=== PATIENT | male | born 1990 | race African-American/Black ===

== ENCOUNTER 2025-07-06 12:52 | Emergency (ER) | payer MEDICAID, OTHER ==
[~2025-07-06] VITALS: Ht 188 cm; Wt 102.9 kg
--- NOTE | 2025-07-06 13:21 | ECG ---
[facility] Test Date: 2025-07-06 Test Time: 13:02:09 Pat Name: AMY AN Department: ED Room: Gender: M In [employer] Associate: CHEN : 1990 Requested By: ALEX CAVAZOS Order Number: [id number] Reading MD: Maciej Amato Measurements Intervals [place] Rate: 82 P: 55 SC: 157 QRS: 62 QRSD: 98 T: 38 QT: 345 QTc: 403 Interpretive Statements Sinus rhythm Probable left atrial enlargement Electronically Signed On 07-08-2025 18:41:45 PDT by Maciej Amato Please click the below link to view image of tracing.
--- NOTE | 2025-07-06 13:32 | ED.PDOC ---
GI ASSESSMENT HPI Comments 34y M who presents to the ED for chief complaint of abdominal pain. Pt states he has been having this abdominal pain for many years and was referred to GI specialist for EGD but states he did not to go appt. Pt states he has been having epigastric burning abdominal pain radiating to the upper chest for the few days and states it has become more exacerbated today and pt came to the ED for further evaluation. Pt denies any associated symptoms but states he has been having increase intake of fast food recently and this makes it worse. Pt otherwise states otherwise has PCP appt upcoming Jul 2025. Pt denies any other symptoms. Chief Complaint: Abdominal Pain Time Seen by MD: 13:30 Reviewed Notes: Medications, Allergies Allergies: Coded Allergies: NO KNOWN ALLERGIES (Unverified , 07/06/25) Information Source: Patient Mode of Arrival: Ambulatory Past Medical History PAST MEDICAL HISTORY: Denies Surgical History: Denies all surgeries Family History Family History: Reviewed,noncontributory to illness Social History Smoker: Non-Smoker Alcohol: Denies ETOH Use Drugs: Denies Drug Use Lives In: Home Constitutional: denies: chills, diaphoresis, fatigue, fever, malaise, sweats, weakness, others EENTM: denies: blurred vision, double vision, ear bleeding, ear discharge, ear drainage, ear pain, ear ringing, eye pain, eye redness, hearing loss, mouth pain, mouth swelling, nasal discharge, nose bleeding, nose congestion, nose pain, photophobia, tearing, throat pain, throat swelling, voice changes, others Respiratory: denies: cough, hemoptysis, orthopnea, SOB at rest, shortness of b reath, SOB with excertion, stridor, wheezing, others Cardiovascular: denies: chest pain, dizzy spells, diaphoresis, Dyspnea on exertion, edema, irregular heart beat, left arm pain, lightheadedness, palpitations, PND, syncope, others Gastrointestinal: reports: abdominal pain; denies: abdomen distended, blood streaked bowels, constipated, diarrhea, dysphagia, difficulty swallowing, hematemesis, melena, nausea, poor appetite, poor fluid intake, rectal bleeding, rectal pain, vomiting, others Genitourinary: denies: burning, dysuria, flank pain, frequency, hematuria, incontinence, penile discharge, penile sore, pain, testicle pain, testicle swelling, urgency, others Neurological: denies: dizziness, fainting, headache, left sided numbness, left sided weakness, numbness, paresthesia, pre-existing deficit, right sided numbness, right sided weakness, seizure, speech problems, tingling, tremors, weakness, others Musculoskeletal: denies: back pain, gout, joint pain, joint swelling, muscle pain, muscle stiffness, neck pain, others Integumetry: denies: bruises, change in color, change in hair/nails, dryness, laceration, lesions, lumps, rash, wounds, others Allergic/Immunocompromised: denies: Difficulty Healing, Frequent Infections, Hives, Itching, others Hematologic/Lymphatic: denies: anemia, blood clots, easy bleeding, easy bruisi ng, swollen glands, others Endocrine: denies: excessive hunger, excessive sweating, excessive thirst, exce ssive urination, flushing, intolerance to cold, intolerance to heat, unexplained weight gain, unexplained weight loss, others Psychiatric: denies: anxiety, bipolar disorder, depression, hopeless, panic disorder, schizophrenia, sleepless, suicidal, others All Other Systems: Reviewed and Negative Physical Exam General Appearance: No Apparent Distress, Normal HEENT: Normal ENT Inspection, Pharynx Normal, TMs Normal Neck: Full Range of Motion, Non-Tender, Normal, Normal Inspection Respiratory: Chest Non-Tender, Lungs Clear, No Accessory Muscle Use, No Respiratory Distress, Normal Breath Sounds Cardiovascular: No Edema, No JVD, No Murmur, No Gallop, Normal Peripheral Pulses, Regular Rate/Rhythm Breast Exam: Deferred Gastrointestinal: No Organomegaly, Non Tender, No Pulsatile Mass, Normal Bowel Sounds, Soft Genitalia: Deferred Pelvic: Deferred Rectal: Deferred Extremities: No calf tenderness, Normal capillary refill, Normal inspection, Normal range of motion, Non-tender, No pedal edema Musculoskeletal : Apperance: Normal Neurologic: Alert, 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 Was a procedure done?: No GI differential Dx Differential Diagnosis: Esophagitis, Gastritis/PUD, Gastroenteritis, Hernia, Pancreatitis, Dehydration, Electrolyte Imbalance X-Ray, Labs, Meds, VS Vital Signs Date Time Temp Pulse Resp B/P (MAP) Pulse Ox O2 Delivery O2 Flow Rate FiO2 07/06/25 14:28 98.7 80 16 121/72 (88) 96 98.7 07/06/25 14:28 80 17 96 Room Air 07/06/25 13:02 82 07/06/25 12:54 97.9 91 18 144/87 99 97.9 Lab Test 07/06/25 13:54 Range/Units White Blood Count 7.9 4.4-10.8 10^3/uL Red Blood Count 5.52 4.5-5.90 10^6/uL Hemoglobin 15.0 13.5-17.5 g/dL Hematocrit 45.3 41.0-53.0 % Mean Corpuscular Volume 82.1 80.0-100.0 fL Mean Corpuscular Hemoglobin 27.2 L 28.0-32.0 pg Mean Corpuscular Hemoglobin Concent 33.2 32.0-36.0 g/dL Red Cell Distribution Width 14.3 11.8-14.3 % Platelet Count 336 140-450 10^3/uL Mean Platelet Volume 7.6 6.9-10.8 fL Neutrophils (%) (Auto) 55.8 37.0-80.0 % Lymphocytes (%) (Auto) 30.6 10.0-50.0 % Monocytes (%) (Auto) 8.6 0.0-12.0 % Eosinophils (%) (Auto) 4.0 0.0-7.0 % Basophils (%) (Auto) 1.0 0.0-2.0 % Neutrophils # (Auto) 4.4 1.6-8.6 10 ^3/uL Lymphocytes # (Auto) 2.4 0.4-5.4 10 ^3/uL Monocytes # (Auto) 0.7 0-1.3 10 ^3/uL Eosinophils # (Auto) 0.3 0-0.8 10 ^3/uL Basophils # (Auto) 0.1 0-0.2 10 ^3/uL Nucleated Red Blood Cells 0.0 % Sodium Level 140 136-145 mmol/L Potassium Level 4.3 3.5-5.1 mmol/L Chloride Level 106 98-107 mmol/L Carbon Dioxide Level 27 20-31 mmol/L Anion Gap 7 5-15 Blood Urea Nitrogen 14 9-23 mg/dL Creatinine 1.03 0.700-1.30 mg/dL Glomerular Filtration Rate Calc 97 >90 mL/min BUN/Creatinine Ratio 13.6 10.0-20.0 Serum Glucose 95 74-106 mg/dL Calcium Level 9.6 8.7-10.4 mg/dL Lipase 39 12-53 U/L Current Medications Medications (Trade) Dose Ordered Sig/Philip Route Start Time Stop Time Status Last Admin Al Hydrox/Mg Hydrox/Simethicone (Maalox Plus) 30 ml ONCE ONCE PO 07/06/25 13:45 07/06/25 13:46 DC 07/06/25 14:27 Famotidine (Pepcid Tablet) 20 mg ONCE ONCE PO 07/06/25 13:45 07/06/25 13:46 DC 07/06/25 14:27 X-Ray, Labs, Meds, VS Comment Patient presents with epigastric pain with etiology most likely secondary to gastritis/GERD or other benign etiology. Discussed management as outpatient with H2 Clint (for which prescription was sent to the pharmacy) and risk reduction with lifestyle changes such as sleeping at an angle, reduction in trigger (acidic/caffeinated/spicy/alcohol) foods, spreading out meals to 5-6 small meals per day, and minimizing PO intake 2 hours prior to sleep. Reviewed return precautions with patient including worsening pain, PO intolerance, fever > 100.4. Reviewed return precautions including, but not limited to fever > 100.4, worsening of symptoms, and PO intolerance. Patient is in agreement with the plan and all questions answered. Considered acute biliary process (choledocholithiasis, cholecystitis, cholangitis), pancreatitis, UGIB, PUD, gastric perforation, lower lobe pneumonia, atypical ACS/RI, or vascular catastrophe, but based on above history/physical/evaluation as above consider these to be less likely. Time of 1ST Reevaluation: 14:15 Reevaluation 1ST: Improved Time of 2ND Reevaluation: 15:27 Reevaluation 2ND: Improved Patient Education/Counseling: Diagnosis, Treatment Family Education/Counseling: No Family Present SEPSIS Sepsis Screen Date sepsis recognized/suspect: Jul 06, 2025 Time Sepsis recognized/suspect: 1254 Recent Procedure: No On Antibiotic Therapy: No Respiratory Rate >20: No Heart Rate >90: No Temp<36 C (96.8 F) or >38.3 C: No SBP <90 or MAP <65 mmHG: No New Acute Mental Status Change: No Is the patient on CPAP, BIPAP,: No Vital Signs Date Time Temp Pulse Resp B/P (MAP) Pulse Ox O2 Delivery O2 Flow Rate FiO2 07/06/25 14:28 98.7 80 16 121/72 (88) 96 98.7 07/06/25 14:28 80 17 96 Room Air 07/06/25 13:02 82 07/06/25 12:54 97.9 91 18 144/87 99 97.9 Laboratory Tests Test 07/06/25 13:54 White Blood Count 7.9 10^3/uL (4.4-10.8) Medications Medications Dose Ordered Sig/Philip Route Start Time Stop Time Status Last Admin Dose Admin Al Hydrox/Mg Hydrox/Simethicone 30 ml ONCE ONCE PO 07/06/25 13:45 07/06/25 13:46 DC 07/06/25 14:27 Famotidine 20 mg ONCE ONCE PO 07/06/25 13:45 07/06/25 13:46 DC 07/06/25 14:27 Departure 1 Departure Time of Disposition: 15:28 Impression: Primary Impression: GERD (gastroesophageal reflux disease) Disposition: 01 HOME / SELF CARE / HOMELESS Condition: Stable e-Prescriptions Famotidine (PEPCID TABLET) 20 Mg Tb 1 TAB PO BID for 14 Days, #28 TAB Prov: ALEX CAVAZOS MD 07/06/25 Discharged With: Self Critical Care Note Critical Care Time?: No Stability Stability form required: No Heart Score Heart Score: Heart Score Response (Comments) Value History N/A 0 EKG N/A 0 Age N/A 0 Risk Factors N/A 0 Troponin N/A 0 Total 0 I personally scribed for ALEX CAVAZOS MD ([email or web address]) on 07/06/25 at 13:32. Electronically submitted by aMry RAY). ALEX CAVAZOS MD Jul 06, 2025 13:32
[2025-07-06 14:23] LABS: Hematocrit 45.3 % (41.0-53.0); Hemoglobin 15.0 g/dL (13.5-17.5); Mean Corpuscular Hemoglobin 27.2 pg (28.0-32.0); Mean Corpuscular Volume 82.1 fL (80.0-100.0); Nucleated Red Blood Cells % 0.0 %
[2025-07-06 14:27] LABS: Chloride 106 mmol/L (98-107); Potassium 4.3 mmol/L (3.5-5.1); Sodium 140 mmol/L (136-145)
[2025-07-06] MEDS: FAMOTIDINE 20 MG TAB PO ONE (14:27)
[2025-07-06] MEDS: MAALOX PLUS or MAALOX 30 ML PO ONE (14:27)
[2025-07-06 14:28] LABS: Anion Gap 7 (5-15); Calcium 9.6 mg/dL (8.7-10.4); Carbon Dioxide 27 mmol/L (20-31)
[2025-07-06 14:33] LABS: BUN/Creatinine Ratio 13.6 (10.0-20.0); Blood Urea Nitrogen 14 mg/dL (9-23); Glucose 95 mg/dL (74-106)
[2025-07-06] MEDS ORDERED: FAMO20TA10 PO (15:29)
[2025-07-06 15:43] VITALS: BP 124/68; PULSE 77; RESP 17; TEMP 98.7; O2SAT 97
== END 2025-07-06 15:44 | disposition home or self-care (01) ==
LOC: ER 12:52
DX: K21.9 Gastro-esophageal reflux disease without esophagitis (principal)
CPT/HCPCS: 36415; 80048; 83690; 85025; 93005

== ENCOUNTER 2025-07-12 23:07 | Emergency (ER) | payer MEDICAID ==
[~2025-07-12] VITALS: Ht 188 cm; Wt 103.3 kg
[~2025-07-12 23:07] MED LIST: FAMO20TA10 PO
--- NOTE | 2025-07-12 23:34 | ED.PDOC ---
History of Present Illness HPI Comments 34 y/o M presents with epigastric abdominal pain. Patient endorses on returning pain sensation in his abdomen, which radiates to his sternum, this evening. He comments on being seen at ED for similar symptoms and diagnosed with GERD on 07/06/25 in addition to being prescribed Pepcid. Patient states on taking Pepcid and having no relief or improvement for pain. Additional pertinent history of concurrent umbilical hernia. Denial of any nausea, vomiting, fever, chills, shortness of breath, or further associated symptoms. Chief Complaint: Abdominal Pain Time Seen by MD: 23:15 Reviewed Notes: Nurses Notes, Medications, Allergies Allergies: Coded Allergies: NO KNOWN ALLERGIES (Unverified , 07/06/25) Home Meds Active Scripts Sucralfate (CARAFATE SUSP) 1 Gm/10 Ml Ss, 10 ML PO QID PRN, #1200 ML 3 Refills Prov:JOEL WOOD MD 07/13/25 Ken Carb & Mag Hydrox-Simeth (Mylanta Coat & Cool 1200-270-80 mg/10Ml) 1 Fernanda Fernanda, 1 FERNANDA PO Q6HP PRN, #120 ML 5 Refills Prov:JOEL WOOD MD 07/13/25 Pantoprazole Sodium Sesquihydr (Protonix) 40 Mg Tab, 40 MG PO DAILY for 90 Days, #90 TAB 3 Refills Prov:JOEL WOOD MD 07/13/25 Famotidine (PEPCID TABLET) 20 Mg Tb, 1 TAB PO BID for 14 Days, #28 TAB Prov:ALEX CAVAZOS MD 07/06/25 Information Source: Patient Mode of Arrival: Ambulatory Past Medical History PAST MEDICAL HISTORY: GERD Past Medical History (Other): umbilical hernia Surgical History: Denies all surgeries Family History Family History: Reviewed,noncontributory to illness Social History Smoker: Non-Smoker Alcohol: Denies ETOH Use Drugs: Denies Drug Use Lives In: Home All Other Systems: Reviewed and Negative (Comprehensive systems review obtained and negative except for what is stated in the HPI.) Physical Exam General Appearance: Mild Distress, Normal HEENT: Normal ENT Inspection, Pharynx Normal, TMs Normal Neck: Full Range of Motion, Non-Tender, Normal, Normal Inspection Respiratory: Chest Non-Tender, Lungs Clear, No Accessory Muscle Use, No Respiratory Distress, Normal Breath Sounds Cardiovascular: No Edema, No JVD, No Murmur, No Gallop, Normal Peripheral Pulses, Regular Rate/Rhythm Breast Exam: Deferred Gastrointestinal: No Organomegaly, Non Tender, No Pulsatile Mass, Normal Bowel Sounds, Soft Genitalia: Deferred Pelvic: Deferred Rectal: Deferred Extremities: No calf tenderness, Normal capillary refill, Normal inspection, Normal range of motion, Non-tender, No pedal edema Musculoskeletal : Apperance: Normal Neurologic: Alert, 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 Was a procedure done?: No EKG EKG : Pulse Rate (adult): 76 [place]: Normal Cardiac Rhythm: NSR Block: None Hypertrophy: None ST: Normal Differential Dx Considerations may include: GERD, gastritis, PUD, viral syndrome, spoiled food, among others X-Ray, Labs, Meds, VS Vital Signs Date Time Temp Pulse Resp B/P (MAP) Pulse Ox O2 Delivery O2 Flow Rate FiO2 07/13/25 01:30 96 Room Air* 0 21 07/13/25 01:25 97.6 70 20 114/81 (92) 98 97.6 07/12/25 23:34 76 07/12/25 23:19 76 07/12/25 23:08 98.0 73 18 141/88 99 98.0 Lab Test 07/12/25 23:24 Range/Units White Blood Count 8.3 4.4-10.8 10^3/uL Red Blood Count 5.43 4.5-5.90 10^6/uL Hemoglobin 14.8 13.5-17.5 g/dL Hematocrit 44.2 41.0-53.0 % Mean Corpuscular Volume 81.5 80.0-100.0 fL Mean Corpuscular Hemoglobin 27.2 L 28.0-32.0 pg Mean Corpuscular Hemoglobin Concent 33.4 32.0-36.0 g/dL Red Cell Distribution Width 14.2 11.8-14.3 % Platelet Count 300 140-450 10^3/uL Mean Platelet Volume 7.3 6.9-10.8 fL Neutrophils (%) (Auto) 46.0 37.0-80.0 % Lymphocytes (%) (Auto) 38.1 10.0-50.0 % Monocytes (%) (Auto) 10.5 0.0-12.0 % Eosinophils (%) (Auto) 4.3 0.0-7.0 % Basophils (%) (Auto) 1.1 0.0-2.0 % Neutrophils # (Auto) 3.8 1.6-8.6 10 ^3/uL Lymphocytes # (Auto) 3.2 0.4-5.4 10 ^3/uL Monocytes # (Auto) 0.9 0-1.3 10 ^3/uL Eosinophils # (Auto) 0.4 0-0.8 10 ^3/uL Basophils # (Auto) 0.1 0-0.2 10 ^3/uL Nucleated Red Blood Cells 0.1 % Sodium Level 138 136-145 mmol/L Potassium Level 3.7 3.5-5.1 mmol/L Chloride Level 105 98-107 mmol/L Carbon Dioxide Level 24 20-31 mmol/L Anion Gap 9 5-15 Blood Urea Nitrogen 18 9-23 mg/dL Creatinine 1.21 0.700-1.30 mg/dL Glomerular Filtration Rate Calc 80 >90 mL/min BUN/Creatinine Ratio 14.9 10.0-20.0 Serum Glucose 96 74-106 mg/dL Calcium Level 8.9 8.7-10.4 mg/dL Total Bilirubin 0.8 0.2-1.0 mg/dL Aspartate Amino Transferase (AST) 13 13-40 U/L Alanine Aminotransferase (ALT) 16 7-40 U/L Alkaline Phosphatase 50 46-116 U/L Troponin I High Sensitivity < 3 L </=54 ng/L Total Protein 7.0 5.7-8.2 g/dL Albumin 4.3 3.2-4.8 g/dL Lipase 42 12-53 U/L Current Medications Medications (Trade) Dose Ordered Sig/Philip Route Start Time Stop Time Status Last Admin Ondansetron HCl (Zofran Po) 4 mg ONCE ONCE PO 07/12/25 23:30 07/12/25 23:32 DC 07/13/25 00:28 Al Hydrox/Mg Hydrox/Simethicone (Maalox Plus) 30 ml ONCE ONCE PO 07/12/25 23:30 07/12/25 23:32 DC 07/13/25 00:27 Belladonna Alkaloids/ Phenobarbital ( Elixir) 5 ml ONCE ONCE PO 07/12/25 23:30 07/12/25 23:32 DC 07/13/25 00:27 Lidocaine HCl (Xylocaine 2% Viscous) 15 ml ONCE ONCE PO 07/12/25 23:30 07/12/25 23:32 DC 07/13/25 00:28 Time of 1ST Reevaluation: 23:45 Reevaluation 1ST: Unchanged Patient Education/Counseling: Diagnosis, Treatment Family Education/Counseling: No Family Present SEPSIS Sepsis Screen Date sepsis recognized/suspect: Jul 12, 2025 Time Sepsis recognized/suspect: 2314 Recent Procedure: No On Antibiotic Therapy: No Respiratory Rate >20: No Heart Rate >90: No Temp<36 C (96.8 F) or >38.3 C: No SBP <90 or MAP <65 mmHG: No New Acute Mental Status Change: No Is the patient on CPAP, BIPAP,: No Physician Orders Electrocardigram (07/12/25 23:09) Vital Signs Date Time Temp Pulse Resp B/P (MAP) Pulse Ox O2 Delivery O2 Flow Rate FiO2 07/13/25 01:30 96 Room Air* 0 21 07/13/25 01:25 97.6 70 20 114/81 (92) 98 97.6 07/12/25 23:34 76 07/12/25 23:19 76 07/12/25 23:08 98.0 73 18 141/88 99 98.0 Laboratory Tests Test 07/12/25 23:24 White Blood Count 8.3 10^3/uL (4.4-10.8) Medications Medications Dose Ordered Sig/Philip Route Start Time Stop Time Status Last Admin Dose Admin Al Hydrox/Mg Hydrox/Simethicone 30 ml ONCE ONCE PO 07/12/25 23:30 07/12/25 23:32 DC 07/13/25 00:27 Belladonna Alkaloids/ Phenobarbital 5 ml ONCE ONCE PO 07/12/25 23:30 07/12/25 23:32 DC 07/13/25 00:27 Lidocaine HCl 15 ml ONCE ONCE PO 07/12/25 23:30 07/12/25 23:32 DC 07/13/25 00:28 Ondansetron HCl 4 mg ONCE ONCE PO 07/12/25 23:30 07/12/25 23:32 DC 07/13/25 00:28 Departure 1 Departure Time of Disposition: 02:00 Impression: Primary Impression: Epigastric abdominal pain Disposition: HOME / SELF CARE / HOMELESS Condition: Stable e-Prescriptions Sucralfate (CARAFATE SUSP) 1 Gm/10 Ml Ss 10 ML PO QID PRN, #1200 ML 3 Refills Prov: JOEL WOOD MD 07/13/25 Ken Carb & Mag Hydrox-Simeth (Mylanta Coat & Cool 1200-270-80 mg/10Ml) 1 Fernanda Fernanda 1 FERNANDA PO Q6HP PRN, #120 ML 5 Refills Prov: JOEL WOOD MD 07/13/25 Pantoprazole Sodium Sesquihydr (Protonix) 40 Mg Tab 40 MG PO DAILY for 90 Days, #90 TAB 3 Refills Prov: JOEL WOOD MD 07/13/25 Discharged With: Self Critical Care Note Critical Care Time?: No Stability Stability form required: No Heart Score Heart Score: Heart Score Response (Comments) Value History N/A 0 EKG N/A 0 Age N/A 0 Risk Factors N/A 0 Troponin N/A 0 Total 0 I personally scribed for JOEL WOOD MD ([email or web address]) on 07/12/25 at 23:34. Electronically submitted by Rivas Swanson ([email or web address]). JOEL WOOD MD Jul 12, 2025 23:34
[2025-07-12 23:36] LABS: Nucleated Red Blood Cells % 0.1 %
[2025-07-12 23:38] LABS: Hematocrit 44.2 % (41.0-53.0); Hemoglobin 14.8 g/dL (13.5-17.5); Mean Corpuscular Hemoglobin 27.2 pg (28.0-32.0); Mean Corpuscular Volume 81.5 fL (80.0-100.0)
[2025-07-12 23:51] LABS: Alanine Aminotransferase 16 U/L (7-40); Albumin 4.3 g/dL (3.2-4.8); Alkaline Phosphatase 50 U/L (46-116); Anion Gap 9 (5-15); BUN/Creatinine Ratio 14.9 (10.0-20.0); Bilirubin, Total 0.8 mg/dL (0.2-1.0); Blood Urea Nitrogen 18 mg/dL (9-23); Calcium 8.9 mg/dL (8.7-10.4); Carbon Dioxide 24 mmol/L (20-31); Chloride 105 mmol/L (98-107); Glucose 96 mg/dL (74-106); Lipase 42 U/L (12-53); Potassium 3.7 mmol/L (3.5-5.1); Sodium 138 mmol/L (136-145); Total Protein 7.0 g/dL (5.7-8.2)
[2025-07-13] MEDS: MAALOX PLUS or MAALOX 30 ML PO ONE (00:27)
[2025-07-13] MEDS: DONNATAL 5ml ORAL Elix (BELLADONNA ALK-PHENOBARB) PO ONE (00:27)
[2025-07-13] MEDS: ONDANSETRON ODT 4 MG TAB PO ONE (00:28)
[2025-07-13] MEDS: LIDOCAINE VISCOUS 2% 15ML UD PO ONE (00:28)
[2025-07-13] MEDS ORDERED: PANT40TA2 PO (00:59)
[2025-07-13] MEDS ORDERED: [UNRECOGNIZED DRUG - CODE] PO (00:59)
[2025-07-13] MEDS ORDERED: SUCR1SUS26 PO (00:59)
[2025-07-13 01:25] VITALS: BP 114/81; PULSE 70; RESP 20; TEMP 97.6
[2025-07-13 01:30] VITALS: O2SAT 96
--- NOTE | 2025-07-13 13:30 | ECG ---
[facility] Test Date: 2025-07-12 Test Time: 23:19:05 Pat Name: AMY AN Department: ED Room: Gender: M [employer]: : 1990 Requested By: JOEL WOOD Order Number: [id number] Reading MD: Maciej Amato Measurements Intervals [place] Rate: 76 P: 52 DE: 175 QRS: 51 QRSD: 99 T: 47 QT: 361 QTc: 406 Interpretive Statements Sinus rhythm ST elev, probable normal early repol pattern Electronically Signed On 07-16-2025 15:03:28 PDT by Maciej Amato Please click the below link to view image of tracing.
== END 2025-07-13 01:35 | disposition home or self-care (01) ==
LOC: ER 23:07
DX: R10.13 Epigastric pain (principal); K42.9 Umbilical hernia without obstruction or gangrene; K21.9 Gastro-esophageal reflux disease without esophagitis; Z79.899 Other long term (current) drug therapy
CPT/HCPCS: 36415; 80053; 83690; 84484; 85025; 93005; 99284; Q0162